=== PATIENT | female | born 1960 | race Caucasian/White ===

== ENCOUNTER → 2016-06-23 | Outpatient (CLI) | payer OTHER ==
[~2016-06-23] MED LIST: ATOR-24 PO; DIPH-437 PO; LINA1CAP2 PO; OMEG10007 PO; ONDA4TAB10 SL; POLY335019 PO; PRLSR20 PO; TRAM-10 PO; WHEATAB2 PO; ZNTT/150 PO
[2016-06-23 17:31] LABS: HEMATOCRIT 42.7 % (37-47); MEAN CELL VOLUME 85.1 fL (80-100); MEAN CORPUSCULAR HEMOGLOBIN 29.1 pg (25-34); MEAN CORPUSCULAR HGB CONC 34.2 g/dl (32-36); MEAN PLATELET VOLUME 13.4 fL (7.4-10.4); PLATELET COUNT 215 K/uL (130-400); RED BLOOD COUNT 5.02 M/uL (4.2-5.4); WHITE BLOOD COUNT 6.49 K/uL (4.8-10.8)
[2016-06-23 17:36] LABS: URINE APPEARANCE CLOUDY (CLEAR); URINE BILIRUBIN NEG (NEG); URINE COLOR YELLOW; URINE EPITHELIAL CELL AUTO >30 /lpf (0-5); URINE NITRITE NEG (NEG); URINE PH 5.5 (4.5-7.5); URINE SPECIFIC GRAVITY 1.021 (1.000-1.030); UROBILINOGEN NEG (NEG); ZZUR CULT IF INDIC CLEAN CATCH YES
[2016-06-23 17:38] LABS: MANUAL MICROSCOPIC REQUIRED? NO; REVIEW REQ? NO
[2016-06-23 17:56] LABS: CHOLESTEROL/HDL RATIO 7.5
== END | disposition home or self-care (01) ==
LOC: C.LABPVFM 11:00
PROVIDERS: ATTEND Internal Medicine Cardiovascular Disease
DX: Z01.818 Encounter for other preprocedural examination (principal); R94.31 Abnormal electrocardiogram [ECG] [EKG]; R07.89 Other chest pain; N81.6 Rectocele

== ENCOUNTER 2016-08-04 11:00 | Emergency (ER) | payer OTHER ==
[~2016-08-04] VITALS: Ht 162.6 cm; Wt 77.9 kg
[~2016-08-04 11:00] MED LIST changes: -ATOR-24 PO; -OMEG10007 PO
[2016-08-04 11:07] VITALS: Ht 162.6 cm; Wt 77.9 kg
[2016-08-04] MEDS ORDERED: OMEG10007 PO (11:48)
[2016-08-04] MEDS ORDERED: ATOR-24 PO (11:49)
--- NOTE | 2016-08-04 13:32 | DIAGNOSTIC IMAGING REPORT ---
RIGHT KNEE 3 VIEWS CLINICAL HISTORY: Right knee pain COMPARISON: None. DISCUSSION: No fractures or dislocations are visualized. There are no erosive or destructive changes. IMPRESSION: Unremarkable conventional radiographic evaluation the right knee for age Electronically signed by: Jareth Daley M.D. 08/04/2016 1:31 PM Dictated Date/Time: 08/04/2016 1:30 PM
--- NOTE | 2016-08-04 15:30 | DIAGNOSTIC IMAGING REPORT ---
RIGHT LOWER EXTREMITY VENOUS DOPPLER CLINICAL HISTORY: Right lower extremity pain and swelling. COMPARISON STUDY: Right lower extremity venous Doppler December 07, 2013. TECHNIQUE: Sonography of the deep venous system of the right lower extremity was performed. Compression and augmentation were evaluated. FINDINGS: The right common femoral, superficial femoral and popliteal veins were compressible. Augmentation was normal. Flow was shown within the deep calf vessels. No abnormality was identified by sonography within the soft tissues overlying the right knee at site of maximal pain and swelling. IMPRESSION: No evidence of deep venous thrombus within the right lower extremity. Electronically signed by: Kadeem Feliciano M.D. 08/04/2016 3:28 PM Dictated Date/Time: 08/04/2016 3:27 PM
--- NOTE | 2016-08-04 15:37 | EMERGENCY ROOM VISIT NOTE ---
ED Visit Note First contact with patient: 12:32 CHIEF COMPLAINT: Pain and swelling in the front of the right knee this morning HISTORY OF PRESENT ILLNESS: Patient is a 55-year-old white female who presents emergency department for evaluation of a painful swollen vein over the anterior right knee that she noticed acutely this morning. Patient is 3 weeks status post rectocele repair. She admits that she has been laying around for the last couple of weeks recovering from surgery. This morning she was feeding her dogs , when she began to feel a sharp, throbbing pain in the front of the right knee. She pulled up her pajama pants and noticed that the vein in the front of her knee was swollen and very prominent. She states that it was very painful and rated her pain an 8/10. She did nothing for her symptoms and came to the emergency department. She denies any injury to the area. No falls. She denies that she has been kneeling recently. She denies any history of problems with the right knee. No prior history of DVT. REVIEW OF SYSTEMS: Review of systems as per HPI. All other systems reviewed were negative. At least 6 systems reviewed. PMH: Electronic medical records are reviewed and summarized as above/below. See Problem List. SOCIAL HISTORY: Patient lives at home. Nonsmoker. PHYSICAL EXAM: Vital Signs: Reviewed Nurse's notes. CONSTITUTIONAL: Patient is a well-appearing 55-year-old white female who is awake and alert and in no acute distress. HEART: Regular rate and rhythm without murmurs, ectopy, gallops, or rubs. LUNGS: Clear to auscultation and breath sounds equal, no wheezes, rales, or rhonchi. NEUROLOGICAL: Alert oriented, coherent. PRERL, EOMs full, gait normal. Examination of the right knee shows slight prepatellar soft tissue swelling, possibly prominent venous structure although no palpable cords. No erythema or induration. No knee joint effusion is palpable. Calves are soft and nontender. No other prominent varicosities are noted. EMERGENCY DEPARTMENT COURSE: X-rays of the right knee were obtained and were unremarkable. Ultrasound of the right lower extremity did not demonstrate any evidence for DVT. A focused ultrasound exam over the anterior aspect of the knee in question did not demonstrate any abnormality. Differential diagnoses entertained included superficial thrombophlebitis, DVT, bursitis, among others. The patient was reassured. She was encouraged to take an anti-inflammatory medicine and apply ice, and she has leftover tramadol that she can use for pain. RIGHT KNEE 3 VIEWS CLINICAL HISTORY: Right knee pain COMPARISON: None. DISCUSSION: No fractures or dislocations are visualized. There are no erosive or destructive changes. IMPRESSION: Unremarkable conventional radiographic evaluation the right knee for age RIGHT LOWER EXTREMITY VENOUS DOPPLER CLINICAL HISTORY: Right lower extremity pain and swelling. COMPARISON STUDY: Right lower extremity venous Doppler December 07, 2013. TECHNIQUE: Sonography of the deep venous system of the right lower extremity was performed. Compression and augmentation were evaluated. FINDINGS: The right common femoral, superficial femoral and popliteal veins were compressible. Augmentation was normal. Flow was shown within the deep calf vessels. No abnormality was identified by sonography within the soft tissues overlying the right knee at site of maximal pain and swelling. IMPRESSION: No evidence of deep venous thrombus within the right lower extremity. Problem List Medical Problems: (1) Dysphasia Status: Resolved (2) Esophageal Reflux Status: Chronic (3) FAM HX-DIABETES MELLITUS Status: Chronic (4) FAM HX-ISCHEM HEART DIS Status: Chronic (5) FAMILY HISTORY OF OTHER CARDIOVASCULAR DISEASES Status: Chronic (6) History of herniorrhaphy Status: Resolved (7) Hyperglycemia Status: Resolved (8) Left elbow contusion Status: Resolved (9) Left shoulder pain Status: Resolved (10) Postoperative pain Status: Resolved (11) PURE HYPERGLYCERIDEMIA Status: Chronic (12) Stomach problems Status: Chronic (13) Vomiting Status: Resolved Surgical Problems: (1) History of rectocele Status: Resolved Current/Historical Medications Scheduled Acetaminophen/Diphenhydramine (Tylenol Pm), 1 TAB PO HS Atorvastatin (Lipitor), 40 MG PO DAILY Fish Oil (Corona-3), 1 CAP PO DAILY Linaclotide (Linzess), 290 MCG PO BID Omeprazole (Prilosec), 20 MG PO DAILY Polyethylene Glycol 3350 (Miralax), 17 GM PO BID Ranitidine (Zantac), 150 MG PO HS Wheat Dextrin (Benefiber), 1 DOSE PO BID Scheduled PRN Tramadol (Ultram), 50 MG PO Q6 PRN for Pain Allergies Coded Allergies: Penicillins (Verified Allergy, Intermediate, RASH, 08/04/16) Acetaminophen (Unverified Allergy, Mild, rash, 08/04/16) Hydrocodone (Unverified Allergy, Mild, rash, 08/04/16) Vital Signs Date Time Temp Pulse Resp B/P Pulse Ox O2 Delivery O2 Flow Rate FiO2 08/04/16 16:01 36.8 77 16 118/68 97 08/04/16 16:01 77 16 118/68 97 Room Air 08/04/16 15:07 77 16 121/70 97 Room Air 08/04/16 11:07 36.8 88 18 134/71 95 Room Air Departure Information Impression Primary Impression: Right anterior knee pain Referrals Luisa James C.R.N.P (PCP) Patient Instructions My [facility] Additional Instructions Ibuprofen(Motrin, Advil) may be used for fever or pain. Use 600mg every six hours as needed. Take with food. Avoid using more than 2400mg in a 24 hour period. Do not use 2400mg per day for more than three consecutive days without physician direction. Prolonged inappropriate use can lead to stomach upset or ulcers. This medication can be taken if you need to drive, work, or perform activities which may be dangerous when taking narcotic pain medication. (AND/OR) Acetaminophen(Tylenol) may be used for fever or pain. Use 1000mg every six hours as needed. Avoid using more than 3000mg in a 24 hour period. This medication can be taken if you need to drive, work, or perform activities which may be dangerous when taking narcotic pain medication. Ice compresses for 20 minutes at a time four times daily for 2-3 days. Rest and elevate your injury. Continue current medications. Return to the ER immediately for any numbness, tingling, severe pain, extreme swelling in the extremity or as needed. Follow-up with your primary care provider or orthopedic surgery for further care and evaluation of. your right knee pain
[2016-08-04 16:01] VITALS: BP 118/68; PULSE 77; TEMP 36.8; O2SAT 97
== END 2016-08-04 16:02 | disposition home or self-care (01) ==
LOC: C.EDB 11:02 → C.EDC 16:02
DX: M25.561 Pain in right knee (principal); Z98.890 Other specified postprocedural states; K21.9 Gastro-esophageal reflux disease without esophagitis; Z83.3 Family history of diabetes mellitus; Z82.49 Family history of ischemic heart disease and other diseases of the circulatory system; Z79.899 Other long term (current) drug therapy; M79.604 Pain in right leg; R60.0 Localized edema

== ENCOUNTER → 2016-12-17 | Outpatient (CLI) | payer OTHER ==
[~2016-12-17] MED LIST changes: +ATOR-24 PO; +OMEG10007 PO; -ONDA4TAB10 SL
--- NOTE | 2016-12-17 15:18 | MAMMOGRAPHY REPORT ---
BILATERAL DIGITAL SCREENING MAMMOGRAM TOMOSYNTHESIS WITH CAD: 12/17/2016 CLINICAL HISTORY: Routine screening. Patient has no complaints. TECHNIQUE: Breast tomosynthesis in addition to standard 2D mammography was performed. Current study was also evaluated with a Computer Aided Detection (CAD) system. COMPARISON: Comparison is made to exams dated: 11/13/2014 mammogram, 03/05/2010 mammogram - [facility], 06/28/2007, 06/30/2006, and 04/01/2005 mammogram - [facility]. BREAST COMPOSITION: The tissue of both breasts is heterogeneously dense, which may obscure small mas ses. FINDINGS: The parenchymal pattern is unchanged. No developing mass, architectural distortion or clus ter of suspicious microcalcifications is seen in either breast. IMPRESSION: ACR BI-RADS CATEGORY 2: BENIGN There is no mammographic evidence of malignancy. A 1 year screening mammogram is recommended. The pa tient will receive written notification of the results. Approximately 10% of breast cancers are not detected with mammography. A negative mammographic report should not delay biopsy if a clinically suggestive mass is present. Rajwinder Gibbs M.D. ay/:12/17/2016 15:07:15 Wire Fence Builder: Sanjana ROMO(Gokul)(Sohail), [facility] letter sent: Normal 1/2 BI-RADS Code: ACR BI-RADS Category 2: Benign
== END | disposition home or self-care (01) ==
LOC: C.MAMM 14:10
PROVIDERS: ATTEND Nurse Practitioner
DX: Z12.31 Encounter for screening mammogram for malignant neoplasm of breast (principal)

== ENCOUNTER → 2016-12-23 | Outpatient (CLI) | payer OTHER ==
[2016-12-23 13:29] LABS: ALT/SGPT 29 U/L (12-78); AST/SGOT 20 U/L (15-37); BLOOD UREA NITROGEN 13 mg/dl (7-18); BUN/CREATININE RATIO 20.8 (10-20); CALCIUM 8.8 mg/dl (8.5-10.1); CARBON DIOXIDE 27 mmol/L (21-32); CHLORIDE 108 mmol/L (98-107); CHOLESTEROL 144 mg/dl (0-200); CREATININE 0.63 mg/dl (0.60-1.20); GLUCOSE 104 mg/dl (70-99); POTASSIUM 3.8 mmol/L (3.5-5.1); SODIUM 142 mmol/L (136-145)
[2016-12-23 13:32] LABS: ALKALINE PHOSPHATASE 121 U/L (45-117); CHOLESTEROL/HDL RATIO 4.1; HDL CHOLESTEROL 35 mg/dl; LDL CHOLESTEROL CALCULATED 57 mg/dl; TRIGLYCERIDES 260 mg/dl (0-150); VERY LOW DENSITY LIPOPROT CALC 52 mg/dl
== END | disposition home or self-care (01) ==
LOC: C.LABPVFM 10:39
PROVIDERS: ATTEND Nurse Practitioner
DX: R73.09 Other abnormal glucose (principal); I95.9 Hypotension, unspecified

== ENCOUNTER → 2017-02-16 | Outpatient (CLI) | payer OTHER ==
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
== END | disposition home or self-care (01) ==
LOC: C.RADPV 11:28
PROVIDERS: ATTEND Nurse Practitioner
DX: S22.42XA Multiple fractures of ribs, left side, initial encounter for closed fracture (principal); V29.9XXA Motorcycle rider (driver) (passenger) injured in unspecified traffic accident, initial encounter; M25.552 Pain in left hip; J98.11 Atelectasis; J90 Pleural effusion, not elsewhere classified

== ENCOUNTER → 2017-02-26 | Outpatient (CLI) | payer OTHER ==
[~2017-02-26] MED LIST changes: +CIPR1TAB11 PO; -DIPH-437 PO; +DOCU100T7 PO; +HYDR-4079 PO; -OMEG10007 PO; +RXCS5 PO; -TRAM-10 PO
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
== END | disposition home or self-care (01) ==
LOC: C.RADPV 12:13
PROVIDERS: ATTEND Nurse Practitioner
DX: M25.512 Pain in left shoulder (principal); S22.42XA Multiple fractures of ribs, left side, initial encounter for closed fracture; V29.9XXA Motorcycle rider (driver) (passenger) injured in unspecified traffic accident, initial encounter

== ENCOUNTER → 2017-04-24 | Outpatient (CLI) | payer OTHER ==
[~2017-04-24] MED LIST changes: -CIPR1TAB11 PO; +DICL-201 PO; +PRMVC VAGRING; -RXCS5 PO
[2017-04-24 18:11] LABS: ALT/SGPT 29 U/L (12-78); AST/SGOT 13 U/L (15-37); BLOOD UREA NITROGEN 23 mg/dl (7-18); BUN/CREATININE RATIO 32.6 (10-20); CALCIUM 9.1 mg/dl (8.5-10.1); CARBON DIOXIDE 25 mmol/L (21-32); CHLORIDE 104 mmol/L (98-107); GLUCOSE 112 mg/dl (70-99); POTASSIUM 3.4 mmol/L (3.5-5.1); SODIUM 136 mmol/L (136-145)
[2017-04-24 18:14] LABS: ALB/GLOB RATIO 0.9 (0.9-2); ALKALINE PHOSPHATASE 124 U/L (45-117)
== END | disposition home or self-care (01) ==
LOC: C.LABPVFM 14:04
PROVIDERS: ATTEND Nurse Practitioner
DX: R74.8 Abnormal levels of other serum enzymes (principal)

== ENCOUNTER → 2017-05-13 | Outpatient (CLI) | payer OTHER ==
[~2017-05-13] MED LIST changes: +RANI150T85 PO; -ZNTT/150 PO
== END | disposition home or self-care (01) ==
LOC: C.CPL 16:10
DX: M25.512 Pain in left shoulder (principal)

== ENCOUNTER → 2017-07-20 | Outpatient (CLI) | payer OTHER ==
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
[2017-07-20 18:32] LABS: ALBUMIN 4.1 gm/dl (3.4-5.0); ALT/SGPT 35 U/L (12-78); AST/SGOT 16 U/L (15-37); BLOOD UREA NITROGEN 20 mg/dl (7-18); CALCIUM 9.7 mg/dl (8.5-10.1); CARBON DIOXIDE 28 mmol/L (21-32); CREATININE 0.66 mg/dl (0.60-1.20); GLUCOSE 100 mg/dl (70-99); POTASSIUM 3.7 mmol/L (3.5-5.1); SODIUM 136 mmol/L (136-145)
[2017-07-20 18:34] LABS: ALKALINE PHOSPHATASE 128 U/L (45-117); TOTAL PROTEIN 8.4 gm/dl (6.4-8.2)
== END | disposition home or self-care (01) ==
LOC: C.RADPV 15:56
PROVIDERS: ATTEND Nurse Practitioner
DX: S22.32XD Fracture of one rib, left side, subsequent encounter for fracture with routine healing (principal); X58.XXXD Exposure to other specified factors, subsequent encounter; J98.11 Atelectasis; R74.8 Abnormal levels of other serum enzymes

== ENCOUNTER → 2017-08-10 | Outpatient (CLI) | payer OTHER ==
[2017-08-10 17:40] LABS: BASO % 0.5 %; BASO ABS # 0.03 K/uL (0-0.2); EOS % 1.8 %; HEMATOCRIT 39.6 % (37-47); HEMOGLOBIN 13.1 g/dL (12.0-16.0); IG# 0.01 K/uL (0.00-0.02); LYMPH % 44.5 %; LYMPH ABS # 2.47 K/uL (1.2-3.4); MEAN CELL VOLUME 86.5 fL (80-100); MEAN CORPUSCULAR HEMOGLOBIN 28.6 pg (25-34); MEAN CORPUSCULAR HGB CONC 33.1 g/dl (32-36); MEAN PLATELET VOLUME 12.5 fL (7.4-10.4); MONO % 7.2 %; NEUT % 45.8 %; NEUT ABS # 2.54 K/uL (1.4-6.5); PLATELET COUNT 204 K/uL (130-400); RED CELL DISTRIBUTION WIDTH CV 13.2 % (11.5-14.5); RED CELL DISTRIBUTION WIDTH SD 42.1 fL (36.4-46.3); WHITE BLOOD COUNT 5.55 K/uL (4.8-10.8)
== END | disposition home or self-care (01) ==
LOC: C.LABPVFM 15:42
PROVIDERS: ATTEND Nurse Practitioner
DX: S22.32XA Fracture of one rib, left side, initial encounter for closed fracture (principal); R53.83 Other fatigue; X58.XXXA Exposure to other specified factors, initial encounter

== ENCOUNTER → 2017-08-27 | Outpatient (CLI) | payer OTHER | END | disposition home or self-care (01) | LOC: C.PAPS 08:30 | PROVIDERS: ATTEND Obstetrics & Gynecology | DX: Z12.4 Encounter for screening for malignant neoplasm of cervix (principal) ==

== ENCOUNTER 2019-04-13 16:48 | Inpatient (IN) ==
[2019-04-13] MEDS ORDERED: SODIUM CHLORIDE 0.9% 1000ML 1,000 ML IV ONE (17:57)
[2019-04-13 18:28] LABS: Basophils # (auto) 0.03 K/uL (0-0.2); Basophils % (auto) 0.2 %; Hematocrit (blood only) 41.1 % (37-47); Immature Granulocytes # (auto) 0.03 K/uL (0.00-0.02); Immature Granulocytes % (auto) 0.2 %; Lymphocytes # (auto) 2.08 K/uL (1.2-3.4); Lymphocytes % (auto) 17.1 %; Mean Corpuscular Hemoglobin 28.7 pg (25-34); Mean Corpuscular Hgb Conc 34.1 g/dL (32-36); Mean Corpuscular Volume 84.4 fL (80-100); Mean Platelet Volume 10.6 fL (7.4-10.4); Monocytes # (auto) 0.84 K/uL (0.11-0.59); Monocytes % (auto) 6.9 %; Neutrophils # (auto) 9.17 K/uL (1.4-6.5); Neutrophils % (auto) 75.6 %; Platelet Count 222 K/uL (130-400); RDW Coefficient of Variation 13.4 % (11.5-14.5); RDW Standard Deviation 40.3 fL (36.4-46.3); Red Blood Count 4.87 M/uL (4.2-5.4); White Blood Count 12.15 K/uL (4.8-10.8)
--- NOTE | 2019-04-13 18:28 | Emergency Department Note ---
Entered by Swati Pearson acting as a scribe for History of Present Illness General Chief complaint: GI Assessment Stated complaint: PAIN,NO BOWEL MOVEMENT,VOMITING,ANXIETY ATTACK Time Seen by Provider: 04/13/19 17:48 History of Present Illness Provider complaint: GI bleeding Onset (ago): hour(s) 8 Pain Consistency: + other (episode) Maximum Pain Intensity: 9 Quality: + other (GI bleeding) Relieved By: not by medication (laxatives) Associated symptoms: + diaphoresis, + nausea/vomiting and + other (history of rectocele surgery, constipated for 2 weeks, chills, anxiety attack, abdomen feels hard, elevated pulse rate and blood pressure, massaging back sometimes helps her move bowels) The patient is a 58 year old female who presents to the ED with complaints of an episode of GI bleeding that started 8 hours ago. The patient states that she had rectocele surgery 2 years ago and has felt fine until now because she has been constipated for the past 2 weeks. The patient states that she was seen in the ED yesterday for this reason but nothing was done to help her. The patient notes that she saw her PCP today and was referred back to the ED because of her bleeding as well as her elevated pulse and blood pressure. The patient states that she got out of the shower yesterday afternoon and was diaphoretic, vomiting and had chills. The patient notes that shortly after these symptoms started, she had an anxiety attack. The patient states that when she was seen here yesterday, she was given Ativan which made her sleepy and forgetful. The patient states that she now has blood coming out of her rectum every time she attempts to move her bowels. The patient states that her last bowel movement was 2 weeks ago. The patient states that she has been using laxatives intermittently ever since her surgery, but they are not helping her now. The patient notes that her abdomen feel hard. The patient states that she had back surgery in 2003 and she believes her constipation is sometimes because of her tight back muscles. The patient notes that massaging her back can occasionally help her move her bowels. Home Medications Home Medications Medication Instructions Recorded Confirmed Type aspirin 81 mg PO DAILY 06/03/18 04/13/19 History atorvastatin 40 mg PO PM 06/03/18 04/13/19 History docusate sodium 100 mg PO HS PRN 06/03/18 04/13/19 History gabapentin 300 mg PO TID PRN 06/03/18 04/13/19 History linaclotide [Linzess] 290 mcg PO DAILY PRN 06/03/18 04/13/19 History omeprazole 20 mg PO DAILY PRN 06/03/18 04/13/19 History polyethylene glycol 3350 [Miralax] 17 g PO DAILY PRN 06/03/18 04/13/19 History conjugated estrogens 0.625 mg VAGINAL 2XWK 04/12/19 04/13/19 History ondansetron HCl [Zofran] 4 mg PO DAILY PRN #6 tab 04/12/19 04/13/19 Rx Allergies Allergy/AdvReac Type Severity Reaction Status Date / Time Penicillins Allergy Intermediate RASH Verified 04/13/19 15:42 hydrocodone Allergy Mild rash Verified 04/13/19 15:42 Past Med/Surg History Medical History Acute hyperventilation (Acute) Acute hypokalemia (Acute) Constipation (Chronic) Gastroenteritis (Acute) GI bleed (Acute) Left elbow contusion (Resolved) Left shoulder pain (Resolved) No chronic diseases present Surgical History No significant past surgical history Family History Other No significant family history Social History Preferred Language: Sudanese Communication Ability: Effective Beliefs That Will Affect Care: None marital status: Single Current Living Situation: Family Current Living Situation Comment: son and son's s/o current occupational status: unemployed Feels Safe at Home: Yes Smoking Status: Never smoker Hx Alcohol Use: No Hx Substance Use: No Review of Systems See HPI for pertinent positives & negatives. and A total of 10 systems reviewed and were otherwise negative Physical Exam Vital Signs Vital Signs - 24 hr 04/13/19 17:04 04/13/19 18:24 04/13/19 19:27 Temperature 37.1 C Temperature Source Oral Pulse Rate 104 H Pulse Rate [Apical] 98 H Pulse Rhythm Regular Pulse Strength Normal Respiratory Rate 16 18 Respiratory Effort / Characteristics Non-Labored Respiratory Depth Normal Respiratory Pattern Regular Blood Pressure 135/91 Blood Pressure [Right Arm] 134/71 Blood Pressure Mean 105 Blood Pressure Mean [Right Arm] 92 Blood Pressure Position Sitting Pulse Oximetry 99 98 97 Oxygen Delivery Method Room Air Room Air Room Air Sepsis Recent Fever Within 48 Hours No Sepsis Action Taken by Nursing No Action Required General: Non-ill appearing middle-aged female, in no acute distress. HEENT: Normal cephalic atraumatic. Pupils are equal round and reactive to light. Extraocular movements are intact. Oropharynx is pink with moist mucous membranes. No swelling of the mouth lips or tongue. Neck: Supple with a midline trachea. No meningeal signs or stiffness, no JVD or bruits. No Stridor. Chest: Clear to auscultation bilaterally. No wheezes or rhonchi. No increased work of breathing. Heart: regular rate and rhythm. Abdomen: Soft nontender, nondistended without rebound guarding or rigidity. Rectal: Rectal exam performed in presence of female eyelet maker. No hemorrhoid or tear seen. Scant pinkish stool visualized which was guaiac positive. Possible nodule mass felt above rectum. Extremities: No cyanosis clubbing or edema. No calf tenderness or asymmetry Spine/Back. Non tender to palpation. No CVA tenderness Skin: Good turgor without rashes. Neurologic exam: Cranial nerves two through 12 are intact. Motor and sensation are intact and symmetrical throughout. Course Course 1749: Past medical records reviewed. The patient was evaluated in room C7. A complete history and physical exam was performed. 1920: I performed a rectal exam at this time in the presence of a female eyelet maker. Findings noted in physical exam. 1941: I discussed the patients case with Dr. Brock [facility] Hospitalist. He will evaluate the patient for further management. Consultations Consultation #1: I discussed the patients case with Dr. Brock [facility] Hospitalist. He will evaluate the patient for further management. Time: 19:42 Administered Medications Atorvastatin Calcium (Lipitor) 40 mg PO PM SOPHY Stop: 05/13/19 20:59 Last Admin: 04/14/19 20:51 Dose: 40 mg Documented by: [id number] Admin: 04/13/19 21:51 Dose: 40 mg Documented by: [id number] Calcium Carbonate (Tums) 1,500 mg PO Q4H PRN PRN Reason: Indigestion Stop: 05/13/19 22:49 Last Admin: 04/14/19 03:19 Dose: 1,500 mg Documented by: [id number] Promethazine HCl 25 mg/ Sodium (Chloride) 51 mls @ 204 mls/hr IV Q6H PRN PRN Reason: Nausea And Vomiting Stop: 05/14/19 00:02 Last Infusion: 04/14/19 19:05 Dose: 0 mls/hr Documented by: [id number] Admin: 04/14/19 18:48 Dose: 204 mls/hr Documented by: [id number] Infusion: 04/14/19 08:20 Dose: 0 mls/hr Documented by: [id number] Admin: 04/14/19 08:00 Dose: 204 mls/hr Documented by: [id number] Infusion: 04/14/19 00:57 Dose: 0 mls/hr Documented by: [id number] Admin: 04/14/19 00:33 Dose: 204 mls/hr Documented by: [id number] Pantoprazole Sodium 40 mg/ (Dextrose) 100 mls @ 20 mls/hr IV Q5H SOPHY Stop: 05/14/19 00:29 Last Admin: 04/15/19 06:27 Dose: 20 mls/hr Documented by: [id number] Infusion: 04/15/19 06:16 Dose: 20 mls/hr Documented by: [id number] Admin: 04/15/19 01:16 Dose: 20 mls/hr Documented by: [id number] Infusion: 04/15/19 01:00 Dose: 20 mls/hr Documented by: [id number] Admin: 04/14/19 20:00 Dose: 20 mls/hr Documented by: [id number] Infusion: 04/14/19 20:00 Dose: 20 mls/hr Documented by: [id number] Admin: 04/14/19 15:36 Dose: 20 mls/hr Documented by: [id number] Infusion: 04/14/19 15:36 Dose: 20 mls/hr Documented by: [id number] Admin: 04/14/19 10:40 Dose: 20 mls/hr Documented by: [id number] Infusion: 04/14/19 10:40 Dose: 20 mls/hr Documented by: [id number] Admin: 04/14/19 06:12 Dose: 20 mls/hr Documented by: [id number] Infusion: 04/14/19 05:46 Dose: 20 mls/hr Documented by: [id number] Admin: 04/14/19 00:46 Dose: 20 mls/hr Documented by: [id number] Lactated Ringer's (Lr) 1,000 mls @ 75 mls/hr IV .[id number] [facility] Stop: 05/14/19 11:29 Last Admin: 04/14/19 22:31 Dose: 75 mls/hr Documented by: [id number] Infusion: 04/14/19 22:31 Dose: 75 mls/hr Documented by: [id number] Infusion: 04/14/19 17:21 Dose: 75 mls/hr Documented by: [id number] Admin: 04/14/19 12:40 Dose: 125 mls/hr Documented by: [id number] Ondansetron HCl (Zofran) 4 mg IV Q6H PRN PRN Reason: Nausea Stop: 05/13/19 21:28 Last Admin: 04/14/19 17:21 Dose: 4 mg Documented by: [id number] Admin: 04/13/19 23:04 Dose: 4 mg Documented by: [id number] Polyethylene Glycol (Miralax Powder Packet) 17 gm PO DAILY [facility] Stop: 05/14/19 08:59 Last Admin: 04/14/19 10:40 Dose: Not Given Documented by: [id number] Discontinued Medications Sodium Chloride (Nss 1000ml) 1,000 mls @ 999 mls/hr IV .Q1H1M ONE Stop: 04/13/19 18:57 Last Infusion: 04/13/19 19:41 Dose: 0 mls/hr Documented by: [id number] Admin: 04/13/19 18:24 Dose: 999 mls/hr Documented by: [id number] Sodium Chloride (Nss 1000ml) 1,000 mls @ 125 mls/hr IV .Q8H [facility] Stop: 05/13/19 21:28 Last Infusion: 04/14/19 15:09 Dose: 0 mls/hr Documented by: [id number] Infusion: 04/14/19 12:29 Dose: 0 mls/hr Documented by: [id number] Admin: 04/14/19 07:29 Dose: 125 mls/hr Documented by: [id number] Infusion: 04/14/19 07:29 Dose: 0 mls/hr Documented by: [id number] Infusion: 04/14/19 04:58 Dose: 125 mls/hr Documented by: [id number] Infusion: 04/14/19 04:37 Dose: 0 mls/hr Documented by: [id number] Infusion: 04/14/19 00:57 Dose: 125 mls/hr Documented by: [id number] Infusion: 04/14/19 00:35 Dose: 0 mls/hr Documented by: [id number] Infusion: 04/14/19 00:04 Dose: 125 mls/hr Documented by: [id number] Infusion: 04/13/19 23:45 Dose: 0 mls/hr Documented by: [id number] Admin: 04/13/19 21:50 Dose: 125 mls/hr Documented by: [id number] Potassium Chloride (K Marcel / Wtr) 10 meq in 100 mls @ 100 mls/hr IV Q1H SOPHY Stop: 04/14/19 01:59 Last Infusion: 04/14/19 03:46 Dose: 0 mls/hr Documented by: [id number] Admin: 04/14/19 02:24 Dose: 100 mls/hr Documented by: [id number] Infusion: 04/14/19 02:20 Dose: 100 mls/hr Documented by: [id number] Admin: 04/14/19 01:20 Dose: 100 mls/hr Documented by: [id number] Infusion: 04/14/19 00:35 Dose: 0 mls/hr Documented by: [id number] Infusion: 04/14/19 00:04 Dose: 75 mls/hr Documented by: [id number] Infusion: 04/13/19 23:45 Dose: 0 mls/hr Documented by: [id number] Admin: 04/13/19 22:55 Dose: 100 mls/hr Documented by: [id number] Infusion: 04/13/19 22:50 Dose: 100 mls/hr Documented by: [id number] Admin: 04/13/19 21:50 Dose: 100 mls/hr Documented by: [id number] Pantoprazole Sodium 80 mg/ (Dextrose) 120 mls @ 480 mls/hr IV NOW STA Stop: 04/14/19 00:21 Last Infusion: 04/14/19 00:47 Dose: 0 mls/hr Documented by: [id number] Admin: 04/14/19 00:32 Dose: 480 mls/hr Documented by: [id number] Ondansetron HCl 8 mg/ Dextrose 54 mls @ 200 mls/hr IV NOW STA Stop: 04/14/19 04:36 Last Infusion: 04/14/19 04:58 Dose: 0 mls/hr Documented by: [id number] Admin: 04/14/19 04:37 Dose: 200 mls/hr Documented by: [id number] Erythromycin Lactobionate 250 (mg/ Sodium Chloride) 105 mls @ 210 mls/hr IV ONE ONE Stop: 04/14/19 12:29 Last Infusion: 04/14/19 15:09 Dose: 0 mls/hr Documented by: [id number] Admin: 04/14/19 12:45 Dose: 210 mls/hr Documented by: [id number] Lidocaine HCl (Xylocaine 2%) Confirm Administered Dose 4 ml INFIL .STK-MED ONE Stop: 04/14/19 10:53 Last Admin: 04/14/19 20:04 Dose: Not Given Documented by: [id number] Potassium Chloride (Klor-Con M20) 40 meq PO NOW STA Stop: 04/13/19 21:30 Last Admin: 04/13/19 21:51 Dose: 40 meq Documented by: [id number] Propofol (Diprivan) Confirm Administered Dose 200 mg IV .STK-MED ONE Stop: 04/14/19 10:53 Last Admin: 04/14/19 20:04 Dose: Not Given Documented by: [id number] Medical Decision Making Differential Diagnosis Differentials include GI bleed, hemorrhoid, constipation, bowel obstruction, colitis, metabolic and electrolyte abnormality. Medical Records Attestation: I reviewed the patient's medical records. Home Medications Current Medication List: was personally reviewed by me Laboratory Data Attestation: I reviewed the patient's lab results. Result diagrams: 04/15/19 08:10 04/15/19 08:10 Lab Results 04/13/19 04/13/19 04/13/19 Range/Units 18:16 18:16 18:16 WBC 12.15 H (4.8-10.8) K/uL RBC 4.87 (4.2-5.4) M/uL Hgb 14.0 (12.0-16.0) g/dL Hct 41.1 (37-47) % MCV 84.4 (80-100) fL MCH 28.7 (25-34) pg MCHC 34.1 (32-36) g/dL RDW Std Deviation 40.3 (36.4-46.3) fL RDW Coeff of Dwaine 13.4 (11.5-14.5) % Plt Count 222 (130-400) K/uL MPV 10.6 H (7.4-10.4) fL Immature Gran % (Auto) 0.2 % Neut % (Auto) 75.6 % Lymph % (Auto) 17.1 % [place] % (Auto) 6.9 % Eos % (Auto) 0.0 % Baso % (Auto) 0.2 % Immature Gran # (Auto) 0.03 H (0.00-0.02) K/uL Neut # (Auto) 9.17 H (1.4-6.5) K/uL Lymph # (Auto) 2.08 (1.2-3.4) K/uL [place] # (Auto) 0.84 H (0.11-0.59) K/uL Eos # (Auto) 0.00 (0-0.5) K/uL Baso # (Auto) 0.03 (0-0.2) K/uL Sodium 136 (136-145) mmol/L Potassium 3.0 L (3.5-5.1) mmol/L Chloride 102 (98-107) mmol/L Carbon Dioxide 26 (21-32) mmol/L Anion Gap 8.0 (3-11) BUN 19 H (7-18) mg/dl Creatinine 0.79 (0.6-1.2) mg/dl Est Cr Clr Drug Dosing 67.0 ml/min Est GFR ( Amer) 95.6 Est GFR (Non-Af Amer) 82.5 BUN/Creatinine Ratio 23.6 H (10-20) Glucose 107 H (70-99) mg/dl Calcium 9.9 (8.5-10.1) mg/dl Total Bilirubin 1.0 (0.2-1) mg/dl AST 16 (15-37) U/L ALT 32 (12-78) U/L Alkaline Phosphatase 101 (45-117) U/L Total Protein 8.5 H (6.4-8.2) gm/dl Albumin 4.3 (3.4-5.0) gm/dl Globulin 4.2 H (2.5-4.0) gm/dl Albumin/Globulin Ratio 1.0 (0.9-2) Lipase 617 H (73-393) U/L Blood Type O Positive Antibody Screen NEGATIVE Blood Pressure Blood Pressure Findings: Elevated blood pressure Blood Pressure Disposition: further management by hospitalist MDM Narrative This patient comes in as described above. She was seen last evening and had extensive work-up including CAT scan of the abdomen and blood work. She did h ave an elevated white count and her abdomen had nonspecific colitis. She has been passing blood per rectum she has a history of rectocele surgery. she saw her primary care doctor who sent her here and they were concerned about her bleeding. I did a rectal exam and I do not see any obvious hemorrhoid or fissure or any source of bleeding. There is scant stool, it was pinkish mucus that was guaiac positive. Her hemoglobin is stable. Her white count is trending down from yesterday. Her abdomen is without peritonitis. Given her ongoing symptoms and the concern for GI bleed, I do think it is prudent to admit/observe her for further inpatient treatment and evaluation GI work-up. I have consulted the [facility] hospitalist to see her in the ER for these measures. Impression & Plan GI bleed, Constipation, Diffuse abdominal pain, Vomiting Discharge Plan Visit Data *Final* Discharge Date/Time: 04/13/19 21:21 Chief Complaint: GI Assessment Stated Complaint: PAIN,NO BOWEL MOVEMENT,VOMITING,ANXIETY ATTACK ED Provider: Clemente Eli Discharge Problem: GI bleed, Constipation, Diffuse abdominal pain, Vomiting Patient Disposition: Admitted As Inpatient Discharge Instructions Interventions: ED Discharge Assessment Last Done: 04/13/19 21:21 Discharge Problem: GI bleed Qualifiers: GI bleed type/associated pathology: unspecified gastrointestinal hemorrhage type Qualified Code(s): K92.2 - Gastrointestinal hemorrhage, unspecified Constipation Qualifiers: Constipation type: unspecified constipation type Qualified Code(s): K59.00 - Constipation, unspecified Vomiting Qualifiers: Vomiting type: unspecified Vomiting Intractability: non-intractable Nausea presence: with nausea Qualified Code(s): R11.2 - Nausea with vomiting, unspecified The scribe's documentation has been prepared under my direction and personally reviewed by me in its entirety. I confirm that the note above accurately reflects all work, treatment, procedures, and medical decision making performed by me.
[2019-04-13 18:49] LABS: Albumin Level 4.3 gm/dl (3.4-5.0); BUN Creatinine Ratio 23.6 (10-20); Calcium 9.9 mg/dl (8.5-10.1); Est GFR (African American) 95.6; Est GFR (Non-African American) 82.5
[2019-04-13 18:52] LABS: Globulin 4.2 gm/dl (2.5-4.0); Total Protein 8.5 gm/dl (6.4-8.2)
[2019-04-13] MEDS ORDERED: POLYETHYLENE (MIRALAX) 17 GM PACK PO PRN (20:21)
[2019-04-13] MEDS ORDERED: GABAPENTIN 300 MG CAP PO PRN (20:21)
--- NOTE | 2019-04-13 20:56 | History & Physical Report ---
Date of Service April 13, 2019 Assessment & Plan (1) GI bleed: Patient is a 58-year-old female past medical history HLD, constipation, who presents with acute on chronic constipation and new onset of bright red blood [facility]. GI Bleed -Hemodynamically stable -HH on admission: . -Will repeat HH overnight and in AM -Consult [facility] GI per pt request -IVF -NPO from midnight -Holding ASA Constipation -Scheduled miralax, dulcolax -Uptitrate outpatient mgmt Abdominal pain -will try to control with bowel regimen and tylenol -Consider morphine prn, however pt reports hydrocodone allergy Hypokalemia -replete prn; monitor HLD -Cont statin Dispo: admit to med/surg Code: full DVTP: SCDs; no chemical ppx in setting of GI bleed (2) Constipation: (3) Diffuse abdominal pain: (4) Acute hypokalemia: (5) Hyperlipidemia: History of Present Illness Chief Complaint: GI bleed, constipation Primary Care Provider: Jennifer Ann MD Patient is a 58-year-old female past medical history HLD, constipation, who presents with acute on chronic constipation and new onset of bright red blood [facility]. Patient was seen yesterday evening in the ER, and had an extensive work-up including a CT scan as well as blood work. CT scan from last evening showed evidence of bowel wall thickening, diverticulosis, absence of diverticulitis, without abdominal obstruction. She was noted to have an elevated white blood cell count of 19,000, and was hypokalemic. C. difficile testing was negative last evening. Norovirus testing is still pending. She saw her PCP today for follow-up, and it was noted at that time that she had an elevated heart rate of 130. She also noted that she has vomited twice while trying to pass bowel movement today, and it was felt by her PCP that she should be evaluated further in the ER today. Of note, patient has a history of rectocele surgery which was performed 2 years ago at [facility] in [place]. Patient notes she takes four stool softeners daily, including 1 capful of MiraLAX, a spoonful of Benefiber as needed, Linzess and as needed, and Dulcolax as needed. She last took Linzess yesterday and notes that today she had mushy, bloody, maroon- colored stool. In general, she notes a maximum of 1 bowel movement every other day. She also notes that it is gone to the point now where she has to "reach in and pull out nuggets." She is complaining of 6 out of 10 pain in the lower left and lower right quadrants on my assessment today. Allergies Allergy/AdvReac Type Severity Reaction Status Date / Time Penicillins Allergy Intermediate RASH Verified 04/13/19 15:42 hydrocodone Allergy Mild rash Verified 04/13/19 15:42 Home Medications Home Medications Medication Instructions Recorded Confirmed Type aspirin 81 mg PO DAILY 06/03/18 04/13/19 History atorvastatin 40 mg PO PM 06/03/18 04/13/19 History docusate sodium 100 mg PO HS PRN 06/03/18 04/13/19 History gabapentin 300 mg PO TID PRN 06/03/18 04/13/19 History linaclotide [Linzess] 290 mcg PO DAILY PRN 06/03/18 04/13/19 History omeprazole 20 mg PO DAILY PRN 06/03/18 04/13/19 History polyethylene glycol 3350 [Miralax] 17 g PO DAILY PRN 06/03/18 04/13/19 History conjugated estrogens 0.625 mg VAGINAL 2XWK 04/12/19 04/13/19 History ondansetron HCl [Zofran] 4 mg PO DAILY PRN #6 tab 04/12/19 04/13/19 Rx Past Med/Surg History Medical History Acute hyperventilation (Acute) Acute hypokalemia (Acute) Constipation (Chronic) Gastroenteritis (Acute) GI bleed (Acute) Left elbow contusion (Resolved) Left shoulder pain (Resolved) No chronic diseases present Surgical History No significant past surgical history Family History Other No significant family history Social History Preferred Language: Croatian Communication Ability: Effective Beliefs That Will Affect Care: None marital status: Single Current Living Situation: Family Current Living Situation Comment: son and son's s/o current occupational status: unemployed Feels Safe at Home: Yes Smoking Status: Never smoker Hx Alcohol Use: No Hx Substance Use: No Review of Systems Review of Systems: All systems reviewed & are unremarkable except as noted in HPI & below Constitutional: + malaise Respiratory: no cough and no dyspnea Cardiovascular: no chest pain Gastrointestinal: + abdominal pain and + vomiting (when straining for BMs); no nausea Genitourinary: no dysuria, no urinary frequency, no urinary hesitancy and no urinary urgency Physical Exam Physical Exam: General: Well-appearing female, in no significant distress. HEENT: No scleral icterus, PERRLA, neck supple. Atraumatic. Cardiovascular: Regular rate and rhythm, no extra sounds. Pulmonary: Clear to auscultation bilaterally, normal work of breathing. Abdomen: Soft, tender in epigastrium, LLQ, RLQ, nondistended, positive bowel sounds. Musculoskeletal: Atraumatic, no peripheral edema. Neurologic: Patient awake alert and oriented x 3, full strength in all 4 extremities. Cranial nerves 2 through 12 grossly intact. Skin: Warm, dry, no rash Results & Data Vital Signs (Past 12 Hours) Vital Signs Temp Pulse Pulse Resp BP BP Pulse Ox 04/13/19 19:27 98 H 18 134/71 97 04/13/19 18:24 98 04/13/19 17:04 98.8 F 104 H 16 135/91 99 Laboratory Results 04/13/19 04/13/19 04/13/19 Range/Units 18:16 18:16 18:16 WBC 12.15 H (4.8-10.8) K/uL RBC 4.87 (4.2-5.4) M/uL Hgb 14.0 (12.0-16.0) g/dL Hct 41.1 (37-47) % MCV 84.4 (80-100) fL MCH 28.7 (25-34) pg MCHC 34.1 (32-36) g/dL RDW Std Deviation 40.3 (36.4-46.3) fL RDW Coeff of Dwaine 13.4 (11.5-14.5) % Plt Count 222 (130-400) K/uL MPV 10.6 H (7.4-10.4) fL Immature Gran % (Auto) 0.2 % Neut % (Auto) 75.6 % Lymph % (Auto) 17.1 % [place] % (Auto) 6.9 % Eos % (Auto) 0.0 % Baso % (Auto) 0.2 % Immature Gran # (Auto) 0.03 H (0.00-0.02) K/uL Neut # (Auto) 9.17 H (1.4-6.5) K/uL Lymph # (Auto) 2.08 (1.2-3.4) K/uL [place] # (Auto) 0.84 H (0.11-0.59) K/uL Eos # (Auto) 0.00 (0-0.5) K/uL Baso # (Auto) 0.03 (0-0.2) K/uL Sodium 136 (136-145) mmol/L Potassium 3.0 L (3.5-5.1) mmol/L Chloride 102 (98-107) mmol/L Carbon Dioxide 26 (21-32) mmol/L Anion Gap 8.0 (3-11) BUN 19 H (7-18) mg/dl Creatinine 0.79 (0.6-1.2) mg/dl Est Cr Clr Drug Dosing 67.0 ml/min Est GFR ( Amer) 95.6 Est GFR (Non-Af Amer) 82.5 BUN/Creatinine Ratio 23.6 H (10-20) Glucose 107 H (70-99) mg/dl Calcium 9.9 (8.5-10.1) mg/dl Total Bilirubin 1.0 (0.2-1) mg/dl AST 16 (15-37) U/L ALT 32 (12-78) U/L Alkaline Phosphatase 101 (45-117) U/L Total Protein 8.5 H (6.4-8.2) gm/dl Albumin 4.3 (3.4-5.0) gm/dl Globulin 4.2 H (2.5-4.0) gm/dl Albumin/Globulin Ratio 1.0 (0.9-2) Lipase 617 H (73-393) U/L Blood Type O Positive Antibody Screen NEGATIVE Code Status & VTE Plan Code Status full VTE Prophylaxis Plan VTE Prophylaxis will be ordered: Yes Supervising Physician Co-Signing Physician Notes Patient was seen and examined by me personally. I reviewed the chart, the orders and discussed the case in detail with Dr. Ester Ruiz MD. I read this H&P and agree with its contents to entirety. Resident Activity Tracking Resident Involvement: Resident Care Provided Care Provided: Adult Hospital Medicine (1) GI bleed GI bleed type/associated pathology: unspecified gastrointestinal hemorrhage type Qualified Code(s): K92.2 - Gastrointestinal hemorrhage, unspecified (2) Constipation Constipation type: unspecified constipation type Qualified Code(s): K59.00 - Constipation, unspecified
[2019-04-13] MEDS ORDERED: DOCUSATE SODIUM 100 MG CAP PO PRN (21:26)
[2019-04-13] MEDS ORDERED: ALUMINUM/MAGNESIUM SUSP 30 ML UDC PO PRN (21:29)
[2019-04-13] MEDS ORDERED: MAGNESIUM HYDROXIDE SUSP 30 ML UDC PO PRN (21:29)
[2019-04-13] MEDS ORDERED: POTASSIUM CHLORIDE 20 MEQ TABCR PO STA (21:29)
[2019-04-13] MEDS ORDERED: ACETAMINOPHEN 325 MG TAB PO PRN (21:29)
[2019-04-13] MEDS: SODIUM CHLORIDE 0.9% 1000ML 1,000 ML IV SCH (21:50)
[2019-04-13] MEDS: POTASSIUM CHLORIDE / WTR 10 MEQ/100 ML PLCT IV SCH ×2 (21:50→22:55)
[2019-04-13] MEDS: ATORVASTATIN 40 MG TAB PO SCH (21:51)
[2019-04-13] MEDS ORDERED: CALCIUM CARBONATE 500 MG CHEWABLE TAB PO PRN (22:50)
[2019-04-13] MEDS: ONDANSETRON INJ 2 MG/ML 2 ML VIAL IV PRN (23:04)
[2019-04-14] MEDS ORDERED: PANTOprazole 80 MG in DEXTROSE 5% 100 ML IV STA (00:07)
[2019-04-14 00:31] LABS: Hematocrit (blood only) 38.3 % (37-47); Hemoglobin 13.3 g/dL (12.0-16.0)
[2019-04-14] MEDS: PROMETHAZINE HCL 25 MG in SODIUM CHLORIDE 0.9% 50 ML IV PRN ×3 (00:33→18:48)
[2019-04-14] MEDS: PANTOprazole 40 MG in DEXTROSE 5% 100 ML IV SCH ×5 (00:46→20:00)
[2019-04-14] MEDS: POTASSIUM CHLORIDE / WTR 10 MEQ/100 ML PLCT IV SCH ×2 (01:20→02:24)
[2019-04-14 01:47] LABS: Appearance Urine Clear (Clear); Bacteria Urine Automated 1+ (Negative); Bilirubin Urine Negative (Negative); Blood Urine 3+ (Negative); Color Urine Yellow; Epithelial Cell Urine Auto >30 /lpf (0-5); Glucose Urine UA Negative (Negative); Ketones Urine 1+ (Negative); Leukocyte Esterase Urine Negative (Negative); Nitrite Urine Negative (Negative); Urobilinogen Urine Negative (Negative); pH Urine 7.5 (4.5-7.5)
[2019-04-14 02:01] LABS: Protein Urine Negative (Negative); Sulfosalicylic Acid Urine Negative (Negative)
--- NOTE | 2019-04-14 03:41 | History & Physical Bridge Note ---
Date of Service April 14, 2019 History & Physical Bridge Note Notified patient experiencing dark emesis, new for patient. Started on protonix drip at symptom onset; Phenergan added for anti-nausea relief. Symptoms persisted; recommended NGT insertion. H&H stable. NGT attempt unsuccessful as patient did not tolerate, patient declines further attempts. 8mg zofran dose given at 0420. Resident Activity Tracking Resident Involvement: Resident Care Provided and Electronic Sales And Service Technician Coverage Note Care Provided: Adult Hospital Medicine
[2019-04-14] MEDS ORDERED: ondansetron HCL 8 MG in DEXTROSE 5% 50 ML IV STA (04:20)
--- NOTE | 2019-04-14 04:27 | Billing Data ---
Coding Level of Care Code 97568 OBS Care - Level 2
[2019-04-14 05:51] LABS: Basophils # (auto) 0.01 K/uL (0-0.2); Basophils % (auto) 0.1 %; Hemoglobin 12.9 g/dL (12.0-16.0); Immature Granulocytes # (auto) 0.02 K/uL (0.00-0.02); Immature Granulocytes % (auto) 0.2 %; Lymphocytes # (auto) 1.17 K/uL (1.2-3.4); Lymphocytes % (auto) 13.1 %; Mean Corpuscular Hgb Conc 33.9 g/dL (32-36); Mean Corpuscular Volume 85.4 fL (80-100); Mean Platelet Volume 11.1 fL (7.4-10.4); Monocytes # (auto) 0.36 K/uL (0.11-0.59); Neutrophils # (auto) 7.35 K/uL (1.4-6.5); Neutrophils % (auto) 82.6 %; Platelet Count 189 K/uL (130-400); RDW Coefficient of Variation 13.2 % (11.5-14.5); RDW Standard Deviation 41.2 fL (36.4-46.3); Red Blood Count 4.45 M/uL (4.2-5.4); White Blood Count 8.91 K/uL (4.8-10.8)
[2019-04-14 06:35] LABS: Albumin Level 3.6 gm/dl (3.4-5.0); BUN Creatinine Ratio 21.4 (10-20); Bilirubin,Total 1.1 mg/dl (0.2-1); Calcium 8.5 mg/dl (8.5-10.1); Creatinine Clr Calc Pharmacy 84.1 ml/min; Est GFR (African American) 114.6; Est GFR (Non-African American) 98.9; Globulin 3.7 gm/dl (2.5-4.0); Potassium 3.9 mmol/L (3.5-5.1); Total Protein 7.3 gm/dl (6.4-8.2)
[2019-04-14] MEDS: SODIUM CHLORIDE 0.9% 1000ML 1,000 ML IV SCH (07:29)
[2019-04-14] MEDS: POLYETHYLENE (MIRALAX) 17 GM PACK PO SCH (10:40)
[2019-04-14] MEDS ORDERED: LIDOCAINE HCL 2% 2 ML VIAL/AMP(20MG/ML) INFIL ONE (10:52)
[2019-04-14] MEDS ORDERED: PROPOFOL IV EMULSION 10 MG/ML 20 ML VIAL IV ONE (10:52)
--- NOTE | 2019-04-14 10:53 | Gastrointestinal Consultation ---
Date of Consultation April 14, 2019 Assessment & Plan (1) Diffuse abdominal pain: (2) GI bleed: (3) Constipation: Pt is a 58 y/o female admitted for rectal bleeding suspected related to constipation - hx of int hemorrhoids seen in previous Colonoscopies in 2009, 2014 thus perhaps a fissure vs int hemorrhoidal bleeding. H/H stable, no signs of BUN rise. Lipase mildly up in 600s, LFTs w mild Tbili elevation 1.1 but liver, pancreas appears normal on CT scan ? mild pancreatitis. She overnight reports nausea and hematemesis last night. - Keep NPO - IVF resusciation - Continue PPI gtt - Zofran IV prn nausea - Will give her one dose of Erythromycin IV - Plan for EGD eval for hematemesis tomorrow by Dr. Pastor - Regarding constipation, would recommend her to continue Linzess 290mcg but on daily basis Supervising Physician Co-Signing Physician Notes I have seen and examined the patient and discussed the management with VERO Mccain. 58 yo fm admitted thru the ER last night for which GI is now consulted initially for ? lgi bleed. She has a history of chronic constipation on multiple medications - doesn't always take her linzess regularly, prior rectocele repair in 2017 at [facility]. Suspect her initial issues with LGI bleed were from constipation irritaing that rectocele site. She had attempts at an ng tube placement overnite for nausea I assume. When seen by Ela this morning- the patient reportedly had hematemesis in the basin and reports of prior hematemesis prior to admission- details as per Ela's note. I was planning for an egd, however, given reports of vomiting from the floor nursing staff to the endo nursing staff, it was decided to delay the procedure until tomorrow and opt for attempt at medical stabilization today with an IV PPI, erythromycin, and IV zofran today. When seen by me shortly later, she did not endorse any hematemesis prior to admission or at the present time - her bin was clear without evidence of blood in the basin in the room. She stated to me she just wanted to eat. PE - Gen- well nourished fm in nad, HEENT - perrla, CV- rrr no mrg, Pulm- Ctab, Abd - soft nt nd +bs, Ext - no lower leg swelling, Skin- no rashes Labs reviewed- hgb essentially normal, no bun rise, no cr rise She did not show me any pictures on her phone of hematemesis. Plan; IV PPI, IV erythromycin, IV Zofran. EGD tomorrow as long as electrolytes are normal. She may have been nauseous with vomiting from underlying constipation- would attempt aggressive bowl regimen with Miralax +/- Dulcolax while in house. Her reports of hematemesis this am that were witnessed by Ela may have been from NG trauma post attempted insertion overnite. It is unclear to me per her history to me if she was having hematemesis prior to admission - her hgb and bun are essentially normal. I do think with 24 hours of IV PPI, anti-nausea medication, and IV erythromcyin, this will help improve a better look tomorrow at her upper GI tract with an EGD tomorrow. She was requesting food as she states she is hungry, given no plan for a procedure today - okay for clear liquids today, npo after midnitie. Replete electrolytes if needed to facilitate egd getting done tomorrow. History of Present Illness Reason for Consultation: Rectal bleeding, constipation Requesting Physician: Dr. Garry Sanford Attending Physician: Dr. Radha Pastor History of Present Illness Pt is a 58 y/o female who presented yesterday w c/o abd pain, rectal bleeding. She has hx of constipation, taking Linzess on PRN. Reports not sure when she had good BM last. Yesterday she started having lower abd pain, when tried to defecate she is passing bright red blood per rectum. She denies any fever, chills, sick contact, recent antibx use. Upon eval, noted leukocytosis WBC 19K -> 8K. H/H 145/42 -> 12/38. BUN was normal. Cdiff and stool cx negative. CT abd/pelvis showed diffuse colonic wall thickening indicating colitis. Overnight, she has nausea, vomiting, reports bloody emesis which she showed me in her phone pictures. Primary team tried placing NGT but was unsuccessful. I did see blood in her emesis bin which pt reports was present before NGT placement was attempted. Allergies Allergy/AdvReac Type Severity Reaction Status Date / Time Penicillins Allergy Intermediate RASH Verified 04/13/19 15:42 hydrocodone Allergy Mild rash Verified 04/13/19 15:42 Home Medications Home Medications Medication Instructions Recorded Confirmed Type aspirin 81 mg PO DAILY 06/03/18 04/13/19 History atorvastatin 40 mg PO PM 06/03/18 04/13/19 History docusate sodium 100 mg PO HS PRN 06/03/18 04/13/19 History gabapentin 300 mg PO TID PRN 06/03/18 04/13/19 History linaclotide [Linzess] 290 mcg PO DAILY PRN 06/03/18 04/13/19 History omeprazole 20 mg PO DAILY PRN 06/03/18 04/13/19 History polyethylene glycol 3350 [Miralax] 17 g PO DAILY PRN 06/03/18 04/13/19 History conjugated estrogens 0.625 mg VAGINAL 2XWK 04/12/19 04/13/19 History ondansetron HCl [Zofran] 4 mg PO DAILY PRN #6 tab 04/12/19 04/13/19 Rx Patient History Medical History Acute hyperventilation (Acute) Acute hypokalemia (Acute) Constipation (Chronic) Gastroenteritis (Acute) GI bleed (Acute) Left elbow contusion (Resolved) Left shoulder pain (Resolved) No chronic diseases present Surgical History No significant past surgical history Family History Other No significant family history Social History Preferred Language: [place] Communication Ability: Effective Beliefs That Will Affect Care: None marital status: Single Current Living Situation: Family Current Living Situation Comment: son and son's s/o current occupational status: unemployed Feels Safe at Home: Yes Smoking Status: Never smoker Hx Alcohol Use: No Hx Substance Use: No Review of Systems Review of Systems: All systems reviewed & are unremarkable except as noted in HPI & below Physical Exam Constitutional: + ill appearing, well groomed and cooperative Eyes: PERRL, conjunctivae normal, anicteric sclerae ENMT: external ear and nose normal, oropharynx normal Respiratory: normal respiratory effort, lungs clear to auscultation Cardiovascular: RRR, no murmur, no edema Gastrointestinal (Abdomen): Inspection/Auscultation: + hypoactive bowel sounds Percussion/Palpation: + abdomen tender (epigastric ) and abdomen soft Skin: no rashes, warm and dry no jaundice Psychiatric: A+Ox3, euthymic affect Lymphatic: no lymphedema Results & Data Vital Signs (Past 12 Hours) Vital Signs Temp Pulse Resp BP Pulse Ox 04/14/19 07:07 36.8 C 80 18 169/70 H 97 04/13/19 22:57 37.2 C 95 H 18 167/63 H 97 (1) GI bleed GI bleed type/associated pathology: unspecified gastrointestinal hemorrhage type Qualified Code(s): K92.2 - Gastrointestinal hemorrhage, unspecified (2) Constipation Constipation type: unspecified constipation type Qualified Code(s): K59.00 - Constipation, unspecified
--- NOTE | 2019-04-14 11:30 | XRay Report ---
KUB HISTORY: Generalized abd pain; severe constipation; quantitate stool COMPARISON: KUB 06/03/2018. Abdomen and pelvis CT 04/12/2019. FINDINGS: The bowel gas pattern is unremarkable. There are no dilated loops of small bowel to suggest an obstruction. No renal calculi. No ureteral calculi. Calcifications in the deep pelvis likely rep resent phleboliths. Old, healed left-sided rib fractures. Small amount of stool seen within the colon . No pneumoperitoneum or pneumatosis. IMPRESSION: 1. No evidence for bowel obstruction. 2. Small amount of stool seen scattered throughout the colon. Electronically signed by: Can Teresa M.D. 04/14/2019 11:29 AM
[2019-04-14] MEDS ORDERED: ERYTHROMYCIN IV ONE (12:00)
[2019-04-14] MEDS ORDERED: SODIUM CHLORIDE 0.9% IV ONE (12:00)
[2019-04-14] MEDS: LACTATED RINGER'S 1,000 ML IV SCH ×2 (12:40→22:31)
[2019-04-14] MEDS: ONDANSETRON INJ 2 MG/ML 2 ML VIAL IV PRN (17:21)
[2019-04-14 18:41] LABS: BUN Creatinine Ratio 9.8 (10-20); Calcium 9.4 mg/dl (8.5-10.1); Creatinine Clr Calc Pharmacy 76.7 ml/min; Est GFR (African American) 111.2; Potassium 3.4 mmol/L (3.5-5.1)
--- NOTE | 2019-04-14 20:19 | Hospitalist Progress Note ---
Date of Service April 14, 2019 Assessment & Plan (1) Hematemesis: new-onset. 1 episode by report. seen by [facility] - plan for EGD tomorrow. allow clears until MN tonight then NPO for EGD in am. PPI drip. anti-emetics. CBC in am. geovanny-dora tear? esophagitis? other? (2) Rectal bleeding: in setting of severe straining due to chronic constipation. hemorrhoidal vs diverticular vs infectious vs other. apparently had IDANIA in the ER but I cannot find documentation of the IDANIA results. I also cannot find documentation in the EMR of her prior colonoscopy either. monitor. serial CBC. treat constipation. defer colonoscopy, if felt necessary, to GI. (3) Constipation: chronic. by history sounds like slow-transit. KUB x-ray obtained this am to examine fecal load - mild. resume outpatient regimen. (4) Diffuse abdominal pain: improved. constipation vs infectious vs other. c. diff negative. appreciate GI consultation. repeat lipase in am as initial lipase in ER was mildly elevated. (5) Colitis: could she have viral gastroenteritis? was this artifactual on CT? other? serial exams. (6) History of repair of rectocele: noted (7) Acute hypokalemia: improved to 3.9 repeat BMP am Subjective pt w/ apparent episode of hematemesis earlier today. no further BRBPR. main complaint is that of persistent nausea. is tolerating jello/clears. minimal abdominal pain. asks multiple questions about her old rectocele and if "it came back." she remembers having a colonoscopy several years ago but cannot recall the results or where the c-scope was done. Review of Systems Constitutional: no fever, no chills and no anorexia ("I'm hungry") Respiratory: + cough, + chest congestion and + wheezing; no dyspnea Cardiovascular: no chest pain Genitourinary: no dysuria Physical Exam Constitutional: well developed and well nourished; no acute distress and no altered mental status ENMT: external ear and nose normal, oropharynx normal Respiratory: no respiratory distress Auscultation: + wheezes; no diminished lung sounds and no crackles Cardiovascular: Rate/Rhythm: regular rate and regular rhythm Heart Sounds: normal S1 and normal S2; no murmur Vessels: posterior tibial pulses present and dorsalis pedis pulses present; no JVD Extremities: no edema Gastrointestinal (Abdomen): normal bowel sounds, soft, nontender, no hepatosplenomegaly Skin: no pallor Psychiatric: A+Ox3, euthymic affect Results & Data Vital Signs (Past 12 Hours) Vital Signs Temp Pulse Resp BP Pulse Ox 04/14/19 15:15 36.9 C 79 18 158/76 H 99 Laboratory Results Laboratory Results - last 24 hr 04/13/19 04/14/19 04/14/19 18:16 00:16 01:30 WBC RBC Hgb 13.3 Hct 38.3 MCV MCH MCHC RDW Std Deviation RDW Coeff of Dwaine Plt Count MPV Immature Gran % (Auto) Neut % (Auto) Lymph % (Auto) [place] % (Auto) Eos % (Auto) Baso % (Auto) Immature Gran # (Auto) Neut # (Auto) Lymph # (Auto) [place] # (Auto) Eos # (Auto) Baso # (Auto) Sodium Potassium Chloride Carbon Dioxide Anion Gap BUN Creatinine Est Cr Clr Drug Dosing Est GFR ( Amer) Est GFR (Non-Af Amer) BUN/Creatinine Ratio Glucose Calcium Total Bilirubin AST ALT Alkaline Phosphatase Total Protein Albumin Globulin Albumin/Globulin Ratio Urine Color Yellow Urine Appearance Clear Urine pH 7.5 Ur Specific Le[place] 1.020 Urine Protein Negative Urine Glucose (UA) Negative Urine Ketones 1+ H Urine Blood 3+ H Urine Nitrite Negative Urine Bilirubin Negative Urine Urobilinogen Negative Ur Leukocyte Esterase Negative Urine WBC (Auto) 1-5 Urine RBC (Auto) 10-30 H U Hyaline Cast (Auto) 1-5 U Epithel Cells (Auto) >30 H Urine Bacteria (Auto) 1+ H Hepatitis C Ab Screen Blood Type O Positive Antibody Screen NEGATIVE 04/14/19 04/14/19 04/14/19 05:19 05:19 05:19 WBC 8.91 RBC 4.45 Hgb 12.9 Hct 38.0 MCV 85.4 MCH 29.0 MCHC 33.9 RDW Std Deviation 41.2 RDW Coeff of Dwaine 13.2 Plt Count 189 MPV 11.1 H Immature Gran % (Auto) 0.2 Neut % (Auto) 82.6 Lymph % (Auto) 13.1 [place] % (Auto) 4.0 Eos % (Auto) 0.0 Baso % (Auto) 0.1 Immature Gran # (Auto) 0.02 Neut # (Auto) 7.35 H Lymph # (Auto) 1.17 L [place] # (Auto) 0.36 Eos # (Auto) 0.00 Baso # (Auto) 0.01 Sodium 135 L Potassium 3.9 D Chloride 107 Carbon Dioxide 25 Anion Gap 3.0 BUN 14 Creatinine 0.63 Est Cr Clr Drug Dosing 84.1 Est GFR ( Amer) 114.6 Est GFR (Non-Af Amer) 98.9 BUN/Creatinine Ratio 21.4 H Glucose 135 H Calcium 8.5 Total Bilirubin 1.1 H AST 15 ALT 27 Alkaline Phosphatase 89 Total Protein 7.3 Albumin 3.6 Globulin 3.7 Albumin/Globulin Ratio 1.0 Urine Color Urine Appearance Urine pH Ur Specific Leiter Urine Protein Urine Glucose (UA) Urine Ketones Urine Blood Urine Nitrite Urine Bilirubin Urine Urobilinogen Ur Leukocyte Esterase Urine WBC (Auto) Urine RBC (Auto) U Hyaline Cast (Auto) U Epithel Cells (Auto) Urine Bacteria (Auto) Hepatitis C Ab Screen Neg Blood Type Antibody Screen 04/14/19 18:00 WBC RBC Hgb Hct MCV MCH MCHC RDW Std Deviation RDW Coeff of Dwaine Plt Count MPV Immature Gran % (Auto) Neut % (Auto) Lymph % (Auto) [place] % (Auto) Eos % (Auto) Baso % (Auto) Immature Gran # (Auto) Neut # (Auto) Lymph # (Auto) [place] # (Auto) Eos # (Auto) Baso # (Auto) Sodium 132 L Potassium 3.4 L Chloride 102 Carbon Dioxide 23 Anion Gap 7.0 BUN 7 D Creatinine 0.69 Est Cr Clr Drug Dosing 76.7 Est GFR ( Amer) 111.2 Est GFR (Non-Af Amer) 96.0 BUN/Creatinine Ratio 9.8 L Glucose 107 H Calcium 9.4 Total Bilirubin AST ALT Alkaline Phosphatase Total Protein Albumin Globulin Albumin/Globulin Ratio Urine Color Urine Appearance Urine pH Ur Specific Leiter Urine Protein Urine Glucose (UA) Urine Ketones Urine Blood Urine Nitrite Urine Bilirubin Urine Urobilinogen Ur Leukocyte Esterase Urine WBC (Auto) Urine RBC (Auto) U Hyaline Cast (Auto) U Epithel Cells (Auto) Urine Bacteria (Auto) Hepatitis C Ab Screen Blood Type Antibody Screen PG Care Time/CCT Total # of Minutes Spent Total Time Spent with Patient: Total time spent is greater than 50% in coordination of care (as documented) at patient's floor/unit and/or counseling patient: (1) Constipation Constipation type: unspecified constipation type Qualified Code(s): K59.00 - Constipation, unspecified (2) Hematemesis Nausea presence: with nausea Qualified Code(s): K92.0 - Hematemesis
[2019-04-14] MEDS: ATORVASTATIN 40 MG TAB PO SCH (20:51)
[2019-04-15] MEDS: PANTOprazole 40 MG in DEXTROSE 5% 100 ML IV SCH ×3 (01:16→14:48)
--- NOTE | 2019-04-15 08:45 | History & Physical Bridge Note ---
Date of Service April 15, 2019 History & Physical Bridge Note I have examined the patient. She has improved nausea overnite, no further hematemesis. PE - alert and oriented, CV - rrr no mrg, Pulm- CTAB, Abd - soft nt nd +bs Labs reviewed EGD today for evaluation of nausea/recent hematemesis.
[2019-04-15 08:56] LABS: Basophils # (auto) 0.02 K/uL (0-0.2); Basophils % (auto) 0.3 %; Eosinophils # (auto) 0.04 K/uL (0-0.5); Eosinophils % (auto) 0.6 %; Hematocrit (blood only) 37.1 % (37-47); Hemoglobin 12.4 g/dL (12.0-16.0); Lymphocytes # (auto) 2.27 K/uL (1.2-3.4); Lymphocytes % (auto) 34.8 %; Mean Corpuscular Hemoglobin 28.6 pg (25-34); Mean Corpuscular Hgb Conc 33.4 g/dL (32-36); Mean Corpuscular Volume 85.5 fL (80-100); Mean Platelet Volume 11.1 fL (7.4-10.4); Monocytes % (auto) 7.7 %; Neutrophils % (auto) 56.6 %; Platelet Count 174 K/uL (130-400); RDW Coefficient of Variation 13.2 % (11.5-14.5); RDW Standard Deviation 41.3 fL (36.4-46.3); Red Blood Count 4.34 M/uL (4.2-5.4); White Blood Count 6.53 K/uL (4.8-10.8)
--- NOTE | 2019-04-15 09:00 | Anesthesiology Consultation ---
Date of Service April 15, 2019 Assessment & Plan (1) Encounter for pre-operative examination: Chart Review Chart Review: Acceptable Risk for Surgery and Patient NOT seen in Pre Admission Testing Consults Requested none History Surgery Operation Date: 04/15/19 16:00 Proposed Procedures p Esophagogastroduodenoscopy Dr. Darby Pastor M.D. Height/Weight Height: 5 ft 4 in Weight: 64.5 kg Allergies Allergy/AdvReac Type Severity Reaction Status Date / Time Penicillins Allergy Intermediate RASH Verified 04/13/19 15:42 hydrocodone Allergy Mild rash Verified 04/13/19 15:42 Medications Home Medications Medication Instructions Recorded Confirmed Last Taken aspirin 81 mg PO DAILY 06/03/18 04/13/19 04/12/19 atorvastatin 40 mg PO PM 06/03/18 04/13/19 02/27/19 docusate sodium 100 mg PO HS PRN 06/03/18 04/13/19 Unknown gabapentin 300 mg PO TID PRN 06/03/18 04/13/19 Unknown linaclotide [Linzess] 290 mcg PO DAILY PRN 06/03/18 04/13/19 04/12/19 2 DOSES TODAY omeprazole 20 mg PO DAILY PRN 06/03/18 04/13/19 Unknown polyethylene glycol 3350 [Miralax] 17 g PO DAILY PRN 06/03/18 04/13/19 Unknown conjugated estrogens 0.625 mg VAGINAL 2XWK 04/12/19 04/13/19 Unknown ondansetron HCl [Zofran] 4 mg PO DAILY PRN #6 tab 04/12/19 04/13/19 Unknown Active Medications Generic Name Dose Route Start Last Admin Trade Name Freq PRN Reason Stop Dose Admin Atorvastatin Calcium 40 mg 04/13/19 21:00 04/14/19 20:51 Lipitor PO 05/13/19 20:59 40 mg PM SOPHY Administration Calcium Carbonate 1,500 mg 04/13/19 22:50 04/14/19 03:19 Tums PO 05/13/19 22:49 1,500 mg Q4H PRN Administration Indigestion Promethazine HCl 25 mg/ Sodium 51 mls @ 204 mls/hr 04/14/19 00:03 04/14/19 19:05 Chloride IV 05/14/19 00:02 Infused Q6H PRN Infusion Nausea And Vomiting Pantoprazole Sodium 40 mg/ 100 mls @ 20 mls/hr 04/14/19 00:30 04/15/19 06:27 Dextrose IV 05/14/19 00:29 20 mls/hr Q5H SOPHY Administration Lactated Ringer's 1,000 mls @ 75 mls/hr 04/14/19 11:30 04/14/19 22:31 Lr IV 05/14/19 11:29 75 mls/hr .[id number] SOPHY Administration Ondansetron HCl 4 mg 04/13/19 21:29 04/14/19 17:21 Zofran IV 05/13/19 21:28 4 mg Q6H PRN Administration Nausea Polyethylene Glycol 17 gm 04/14/19 09:00 04/14/19 10:40 Miralax Powder Packet PO 05/14/19 08:59 Not Given DAILY SOPHY NPO Date Last Intake of Fluids: 04/14/19 Date Last Intake of Solids: 04/14/19 Past Medical History Medical History Acute hyperventilation (Acute) Acute hypokalemia (Acute) Constipation (Chronic) Gastroenteritis (Acute) GI bleed (Acute) Left elbow contusion (Resolved) Left shoulder pain (Resolved) No chronic diseases present Past Family History Family History Other No significant family history Past Surgical History Surgical History No significant past surgical history Social History Smoking Status: Never smoker Hx Alcohol Use: No Hx Substance Use: No Physical Exam Vital Signs Last Vital Signs Temp 36.9 C 04/15/19 07:11 Pulse 89 04/15/19 07:11 Resp 18 04/15/19 07:11 BP 138/74 04/15/19 07:11 Pulse Ox 98 04/15/19 07:11 Testing Laboratory Results 04/15/19 08:10 Urine Color Yellow 04/14/19 01:30 Urine Appearance Clear (Clear) 04/14/19 01:30 Urine pH 7.5 (4.5-7.5) 04/14/19 01:30 Ur Specific [place] 1.020 (1.000-1.030) 04/14/19 01:30 Urine Protein Negative (Negative) 04/14/19 01:30 Urine Glucose (UA) Negative (Negative) 04/14/19 01:30 Urine Ketones 1+ (Negative) H 04/14/19 01:30 Urine Nitrite Negative (Negative) 04/14/19 01:30 Ur Leukocyte Esterase Negative (Negative) 04/14/19 01:30 Urine WBC (Auto) 1-5 /hpf (0-5) 04/14/19 01:30 Urine RBC (Auto) 10-30 /hpf (0-4) H 04/14/19 01:30 U Hyaline Cast (Auto) 1-5 /lpf (0-5) 04/14/19 01:30 U Epithel Cells (Auto) >30 /lpf (0-5) H 04/14/19 01:30 Urine Bacteria (Auto) 1+ (Negative) H 04/14/19 01:30 Blood Type O Positive 04/13/19 18:16 Antibody Screen NEGATIVE 04/13/19 18:16
[2019-04-15] MEDS ORDERED: ATROPINE SULFATE 0.1 MG/ML 10ML SYR IV PRN (09:03)
[2019-04-15] MEDS ORDERED: ePHEDrine sulfate 50 MG/ML AMP IV PRN (09:03)
[2019-04-15] MEDS ORDERED: PROPOFOL IV EMULSION 10 MG/ML 20 ML VIAL IV ONE (09:25)
[2019-04-15] MEDS ORDERED: LIDOCAINE HCL 2% 2 ML VIAL/AMP(20MG/ML) INFIL ONE ×2 (09:25)
--- NOTE | 2019-04-15 09:26 | GI REPORT ---
Patient Name: Kylah Treviño Procedure Date: 04/15/2019 9:10 AM Date of : 1960 Admit Type: Inpatient Age: 58 Gender: Female Attending MD: Radha Pastor M.d. Procedure: Upper GI endoscopy Providers: Radha Pastor M.d. Referring MD: Garry Barreto Indications: Hematemesis and nausea Medicines: See anesthesia note Complications: No immediate complications. Estimated Blood Loss: Estimated blood loss: none. Procedure: Pre-Anesthesia Assessment: - Patient identification and proposed procedure were verified prior to the procedure by the physician, the nurse and the anesthesiologist. The procedure was verified in the pre-procedure area. - Prior to the procedure, a History and Physical was performed, and patient medications, allergies and sensitivities were reviewed. The patient's tolerance of previous anesthesia was reviewed. - The risks and benefits of the procedure and the sedation options and risks were discussed with the patient. All questions were answered and informed consent was obtained. - ASA Grade Assessment: II - A patient with mild systemic disease. After obtaining informed consent, the endoscope was passed under direct vision. Throughout the procedure, the patient's blood pressure, pulse, and oxygen saturations were monitored continuously. The Endoscope was introduced through the mouth, and advanced to the second part of duodenum. The upper GI endoscopy was accomplished without difficulty. The patient tolerated the procedure well. Findings: The examined esophagus was normal. Biopsies were taken with a cold forceps for histology - specimen was placed into Bottle C. No evidence of a tear was seen. The entire examined stomach was normal. Biopsies were taken with a cold forceps for Helicobacter pylori testing - specimen was placed into Bottle B. The duodenal bulb and second portion of the duodenum were normal. Biopsies for histology were taken with a cold forceps for evaluation of celiac disease. The pathology specimen was placed into Bottle A. Verification of specimens was done. Impression: - Normal esophagus. Biopsied. - Normal stomach. Biopsied. - Normal duodenal bulb and second portion of the duodenum. Biopsied. - No evidence of ulceration or active blood was seen or lesions that recent bled were seen. Recommendation: - Await pathology results. - Return to the floor. Moris Schumacher M.d. 04/15/2019 9:26:26 AM This report has been signed electronically. Note Initiated On: 04/15/2019 9:10 AM Number of Addenda: 0 I attest to the content of the Intraoperative Record and orders documented therein, exceptions below {[id number]}
--- NOTE | 2019-04-15 09:26 | Gastroenterology Progress Note ---
Date of Service April 15, 2019 Supervising Physician Co-Signing Physician Notes EGD completed today- biopsies done of the esophagus, stomach, duodenum. No evidence of active bleeding seen on today's egd or recent GI bleeding - bile present in the duodenum. Would suggest transition to PPI (40 mg) once daily, prn antinausea medication. Will inform her of her biopsy results through a letter when they return. Ok to [place] home from a GI perspective. GI will sign off. Results & Data Vital Signs (Past 12 Hours) Vital Signs Temp Pulse Resp BP Pulse Ox 04/15/19 08:53 36.7 C 76 18 134/63 99 04/15/19 07:11 36.9 C 89 18 138/74 98
[2019-04-15 09:28] LABS: BUN Creatinine Ratio 11.6 (10-20); Calcium 9.1 mg/dl (8.5-10.1); Creatinine Clr Calc Pharmacy 80.2 ml/min; Est GFR (African American) 112.9; Est GFR (Non-African American) 97.4; Magnesium 2.1 mg/dl (1.8-2.4); Potassium 3.2 mmol/L (3.5-5.1)
[2019-04-15] MEDS ORDERED: POTASSIUM CHLORIDE 20 MEQ TABCR PO STA (10:47)
[2019-04-15] MEDS: PROMETHAZINE HCL 25 MG in SODIUM CHLORIDE 0.9% 50 ML IV PRN (10:56)
[2019-04-15] MEDS: LACTATED RINGER'S 1,000 ML IV SCH (12:00)
--- NOTE | 2019-04-15 14:59 | Anesthesiology Progress Note ---
Date of Service April 15, 2019 Anesthesia Post Procedure Vital Signs Vital Signs: Temp Pulse Resp BP Pulse Ox 04/15/19 14:39 37.0 C 74 18 152/77 H 97 04/15/19 10:39 36.7 C 71 16 179/92 H 99 04/15/19 10:01 77 18 173/88 H 100 04/15/19 09:46 78 18 179/89 H 100 04/15/19 09:31 36.5 C 79 16 166/75 H 100 04/15/19 08:53 36.7 C 76 18 134/63 99 04/15/19 07:11 36.9 C 89 18 138/74 98 04/14/19 15:15 36.9 C 79 18 158/76 H 99 Pain Intensity Medial Back: Pain Intensity: 6 Transfer of Care Handoff Completed per policy Notes Mental Status: alert / awake / arousable Patient Amnestic to Procedure: Yes Nausea / Vomiting: adequately controlled Pain: adequately controlled Airway Patency, RR, SpO2: stable & adequate BP & HR: stable & adequate Hydration State: stable & adequate Anesthetic Complications: no major complications apparent and Pt Satisfied with anesthetic care
--- NOTE | 2019-04-15 15:16 | Ultrasound Report ---
US gallbladder HISTORY: Nausea. Pain. persistent nausea/emesis COMPARISON: None. FINDINGS: The gallbladder is normal. No shadowing gallstones. Gallbladder wall is 2 mm. Common bile duct is 4 m m. Fatty infiltration of liver. Pancreas and right kidney are unremarkable. No evidence for hydronephros is. IMPRESSION: 1. Fatty infiltration of liver. 2. Otherwise normal ultrasound. The above report was generated using voice recognition software. It may contain grammatical, syntax or spelling errors. Electronically signed by: Cholo Espinosa M.D. 04/15/2019 3:14 PM
[2019-04-15] MEDS: POLYETHYLENE (MIRALAX) 17 GM PACK PO SCH (16:04)
[2019-04-15] MEDS: METOCLOPRAMIDE HCL INJ 5 MG/ML 2 ML VIAL IV SCH ×2 (16:07→20:51)
[2019-04-15] MEDS: ATORVASTATIN 40 MG TAB PO SCH (20:50)
--- NOTE | 2019-04-15 21:25 | Hospitalist Progress Note ---
Date of Service April 15, 2019 Assessment & Plan (1) Hematemesis: 1 episode by report. seen by [facility] - EGD performed this am. completely normal. bx's taken from esophagus, stomach. stop PPI drip. place on IV zantac for symptom control of nausea/reflux type symptoms. cause of reported episode of blood in vomit? upper pharynx or nose? laryngeal? (2) Rectal bleeding: Multiple episodes reported by patient. Hemorrhoidal? Diverticular? Colitis? other? Suspect anal outlet from hemorrhoids. During my IDANIA - which was chaperoned by nurse Melinda - she had several hemorrhoids. The stool was grossly brown, however. I am uncertain what I was feeling on the anterior rectal wall. There was a firmness to the wall - ?mass vs rectocele vs other. H/H have remained stable. Defer to GI about need for colonoscopy while hospitalized. She reports having had colonoscopy within last 5 years- I cannot find record of this. (3) Constipation: acute/chronic. acute component resolved. by history sounds like slow-transit. KUB x-ray obtained to examine fecal load - mild. resumed outpatient regimen. no impaction on IDANIA today. (4) Diffuse abdominal pain: ongoing. crampy. CT abd/pelvis - ?colitis. c diff negative. had minimally elevated lipase - now normalized. LFTs wnl. RUQ u/s obtained today to r/o biliary cause of pain -- no stones, normal gall bladder. Did patient have viral GE causing her current symptoms?? did have leukocytosis a few days ago - now resolved. Appreciate GI input. Need for colonoscopy to r/o colonic causes of pain? (5) Colitis: could she have viral gastroenteritis? was this artifactual on CT? other? serial exams. (6) History of repair of rectocele: noted (7) Acute hypokalemia: low again replete repeat BMP am mag levels have been normal (8) Vomiting: etiology uncertain. RUQ u/s today negative for biliary cause. LFTs and lipase wnl. EGD today normal. CT abd/pelvis recently with ? colitis. viral gastroenteritis??? she has been refractory to zofran and phenergan. thus, place on SCHEDULED reglan 5mg IV q6h. allow diet - full liquids only for now. (9) DVT prophylaxis: low risk due to recent concern for bleeding defer on chemical means ambulate cont IV fluids patient not tolerating PO ongoing electrolyte problems change observation status to full admit status Subjective saw patient several times today. first visit was after she had returned from endoscopy. by report had a NORMAL brown, nonbloody BM in endoscopy. EGD was normal. during this 1st visit I found her holding a large emesis basis and spitting up clear fluid. she c/o nausea. she told me "I'm starving!" "I have nausea because I haven't eaten anything in 4 days!" she says "I can't eat jello" she tolerated some crackers just before my arrival she continues with abdominal cramps had stool overnight - was normal, but then she stated she had another stool after returning from endoscopy and "I think it had blood" Review of Systems Constitutional: + fatigue; no fever and no chills Respiratory: + cough; no dyspnea Cardiovascular: no chest pain Gastrointestinal: + abdominal pain, + bloating, + nausea, + vomiting and + blood in stools (question of); no constipation and no diarrhea/loose stools Physical Exam Constitutional: well developed, well nourished and + acute distress (vomiting ); no altered mental status ENMT: external ear and nose normal, oropharynx normal Respiratory: no respiratory distress Auscultation: + wheezes; no diminished lung sounds and no crackles Cardiovascular: Rate/Rhythm: regular rate and regular rhythm Heart Sounds: normal S1 and normal S2; no murmur Vessels: posterior tibial pulses present and dorsalis pedis pulses present; no JVD Extremities: no edema Gastrointestinal (Abdomen): normal bowel sounds, soft, nontender, no hepatosplenomegaly Inspection/Auscultation: + abdomen distended (mild) Rectal Exam: + hemorrhoids (multiple); normal sphincter tone, no stool abnormal, no fecal impaction, no rectal tenderness, no rectal fissure and no rectal laceration ?small mass anterior rectal wall vs rectocele vs other??? Skin: no pallor Psychiatric: A+Ox3, euthymic affect Results & Data Vital Signs (Past 12 Hours) Vital Signs Temp Pulse Resp BP Pulse Ox 04/15/19 14:39 37.0 C 74 18 152/77 H 97 04/15/19 10:39 36.7 C 71 16 179/92 H 99 04/15/19 10:01 77 18 173/88 H 100 04/15/19 09:46 78 18 179/89 H 100 04/15/19 09:31 36.5 C 79 16 166/75 H 100 Laboratory Results Laboratory Results - last 24 hr 04/15/19 04/15/19 08:10 08:10 WBC 6.53 RBC 4.34 Hgb 12.4 Hct 37.1 MCV 85.5 MCH 28.6 MCHC 33.4 RDW Std Deviation 41.3 RDW Coeff of Dwaine 13.2 Plt Count 174 MPV 11.1 H Immature Gran % (Auto) 0.0 Neut % (Auto) 56.6 Lymph % (Auto) 34.8 Caldwell % (Auto) 7.7 Eos % (Auto) 0.6 Baso % (Auto) 0.3 Immature Gran # (Auto) 0.00 Neut # (Auto) 3.70 Lymph # (Auto) 2.27 Caldwell # (Auto) 0.50 Eos # (Auto) 0.04 Baso # (Auto) 0.02 Sodium 139 D Potassium 3.2 L Chloride 107 Carbon Dioxide 25 Anion Gap 7.0 BUN 8 Creatinine 0.66 Est Cr Clr Drug Dosing 80.2 Est GFR ( Amer) 112.9 Est GFR (Non-Af Amer) 97.4 BUN/Creatinine Ratio 11.6 Glucose 89 Calcium 9.1 Magnesium 2.1 Lipase 104 PG Care Time/CCT Total # of Minutes Spent Total Time Spent with Patient: Total time spent is greater than 50% in coordination of care (as documented) at patient's floor/unit and/or counseling patient: (1) Hematemesis Nausea presence: with nausea Qualified Code(s): K92.0 - Hematemesis (2) Constipation Constipation type: unspecified constipation type Qualified Code(s): K59.00 - Constipation, unspecified (3) Vomiting Nausea presence: with nausea Vomiting Intractability: non-intractable Vomiting type: unspecified Qualified Code(s): R11.2 - Nausea with vomiting, unspecified
[2019-04-16] MEDS: LACTATED RINGER'S 1,000 ML IV SCH (01:02)
[2019-04-16] MEDS: METOCLOPRAMIDE HCL INJ 5 MG/ML 2 ML VIAL IV SCH ×2 (01:02→08:30)
[2019-04-16 06:41] LABS: Calcium 9.1 mg/dl (8.5-10.1); Est GFR (African American) 112.3; Est GFR (Non-African American) 96.9; Potassium 3.4 mmol/L (3.5-5.1)
[2019-04-16] MEDS ORDERED: POTASSIUM CHLORIDE 20 MEQ TABCR PO STA (07:45)
[2019-04-16] MEDS: POLYETHYLENE (MIRALAX) 17 GM PACK PO SCH (08:30)
--- NOTE | 2019-04-16 10:18 | Anesthesiology Progress Note ---
Date of Service April 16, 2019 Anesthesia Post Procedure Vital Signs Vital Signs: Temp Pulse Resp BP Pulse Ox 04/16/19 07:21 36.8 C 86 20 145/84 H 96 04/15/19 22:31 36.7 C 102 H 18 112/64 96 04/15/19 14:39 37.0 C 74 18 152/77 H 97 04/15/19 10:39 36.7 C 71 16 179/92 H 99 Pain Intensity Medial Back: Pain Intensity: 4 Notes Mental Status: alert / awake / arousable Patient Amnestic to Procedure: Yes Nausea / Vomiting: adequately controlled Pain: adequately controlled Airway Patency, RR, SpO2: stable & adequate BP & HR: stable & adequate Hydration State: stable & adequate Anesthetic Complications: no major complications apparent and Pt Satisfied with anesthetic care
--- NOTE | 2019-04-16 10:52 | Discharge Summary ---
Date of Service April 16, 2019 Admission HPI Per Admitting Provider Patient is a 58-year-old female past medical history HLD, constipation, who presents with acute on chronic constipation and new onset of bright red blood VA. Patient was seen yesterday evening in the ER, and had an extensive work-up including a CT scan as well as blood work. CT scan from last evening showed evidence of bowel wall thickening, diverticulosis, absence of diverticulitis, without abdominal obstruction. She was noted to have an elevated white blood cell count of 19,000, and was hypokalemic. C. difficile testing was negative last evening. Norovirus testing is still pending. She saw her PCP today for follow-up, and it was noted at that time that she had an elevated heart rate of 130. She also noted that she has vomited twice while trying to pass bowel movement today, and it was felt by her PCP that she should be evaluated further in the ER today. Of note, patient has a history of rectocele surgery which was performed 2 years ago at [facility] in [place]. Patient notes she takes four stool softeners daily, including 1 capful of MiraLAX, a spoonful of Benefiber as needed, Linzess and as needed, and Dulcolax as needed. She last took Linzess yesterday and notes that today she had mushy, bloody, maroon- colored stool. In general, she notes a maximum of 1 bowel movement every other day. She also notes that it is gone to the point now where she has to "reach in and pull out nuggets." She is complaining of 6 out of 10 pain in the lower left and lower right quadrants on my assessment today. Admission Exam Per Admitting Provider General: Well-appearing female, in no significant distress. HEENT: No scleral icterus, PERRLA, neck supple. Atraumatic. Cardiovascular: Regular rate and rhythm, no extra sounds. Pulmonary: Clear to auscultation bilaterally, normal work of breathing. Abdomen: Soft, tender in epigastrium, LLQ, RLQ, nondistended, positive bowel sounds. Musculoskeletal: Atraumatic, no peripheral edema. Neurologic: Patient awake alert and oriented x 3, full strength in all 4 extremities. Cranial nerves 2 through 12 grossly intact. Skin: Warm, dry, no rash Principal Diagnosis Viral Gastroenteritis Discharge Exam Constitutional: well developed, well nourished and no acute distress; no altered mental status ENMT: external ear and nose normal, oropharynx normal Respiratory: no respiratory distress Auscultation: no diminished lung sounds and no crackles Cardiovascular: Rate/Rhythm: regular rate and regular rhythm Heart Sounds: normal S1 and normal S2; no murmur Vessels: posterior tibial pulses present and dorsalis pedis pulses present; no JVD Extremities: no edema Gastrointestinal (Abdomen): normal bowel sounds, soft, nontender, no hepatosplenomegaly Skin: no pallor Psychiatric: A+Ox3, euthymic affect Discharge Data Allergies Allergy/AdvReac Type Severity Reaction Status Date / Time Penicillins Allergy Intermediate RASH Verified 04/13/19 15:42 hydrocodone Allergy Mild rash Verified 04/13/19 15:42 Consultations 04/13/19 19:28 ED Decision to Admit Stat 04/13/19 21:29 Consult Gastroenterology Routine Procedures Performed Operation Date: 04/15/19 16:00 Actual Procedures p EGD Biopsy Cytology - Radha Pastor M.D. Ordered Studies 04/12/19 CT Abd/pelvis 04/14/19 KUB 04/15/19 13:15 US gallbladder Urgent Hospital Course (1) Rectal bleeding: Patient admitted with rectal bleeding per patient over past several days. Concern for diverticular vs colitis vs hemorrhoidal in origin. Patient placed on protonix drip, zantac for symptoms control of nausea/reflux. Recurrent nausea only improved by SCHEDULED reglan. H/H remained stable. Colonoscopy deferred to outpatient setting given no recurrence. Per patient, she had colonoscopy within the last five year but unsure who did this and no records available. IDANIA performed which was positive for hemerrhoids, internal and possible firmness to anterior rectal wall. Ongoing abdominal pain throughout stay, but resolved prior to discharge. CT abd/pelvis with possible colitis which probably was viral in origin. Cdiff negative, minimally elevated lipase which normalized prior to discharge. LFTs wnl. RUQ U/S without evidence of stones or inflammation. Patient with chronic constipation and requires multiple stoool softeners/mo tility agents, but admitted that she had not been very faithful at taking these on the regular. KUB was done for constipation while inpatient which showed moderate fecal load which was relieved by reinitiation of outpatient regimen. During hospitalization, patient reported hematemesis x 1, unwitnessed, and was seen by [facility] who performed EGD which was done and found to be without abnormality. Biopsies taken, pending at time of discharge. Per patient, she did state she has dry nose chronically which is managed with saline nasal spray at home. ?Hematemesis origin from upper pharynx/nose. Recommended patient continue PPI as outpatient. (2) Hematemesis: resolved (3) Constipation: resolved (4) Diffuse abdominal pain: resolve (5) Colitis: (6) History of repair of rectocele: noted (7) Acute hypokalemia: Several low potassium levels. Repleted with mag level normal prior to d/c (8) Vomiting: resolved (9) DVT prophylaxis: low risk . ambulation encouraged while inpatient Total Time Total Time Spent Total Time Spent (In Minutes): 45 Discharge Plan Discharge Items Patient Disposition: Home - Self-Care Reason For Visit: BRBPR Discharge Diagnosis: Viral Gastroenteritis Goals: You have been hospitalized for an acute medical problem. During your stay at [facility], we have made an effort to correct the problem that brought you to the hospital while keeping you as comfortable as possible. Medications were used to bring your condition under control and your discharge instructions will include directions for any medications you should take after leaving the hospital. Please make sure you see your Primary Care Provider as part of your follow up plan. Activity: Resume your previous activity Non-emergency contact: Primary Care Provider Call non-emergency contact if: you have any medication questions, your symptoms worsen, your pain is worsening and you have a fever Follow-up/Referrals: Jennifer Ann MD [Primary Care Provider] - 04/21/19 11:30 am (Please, follow up at [facility] with Dr. Ann on April 21 at 11:30 am. *If you need to change this appointment, call the office at [phone].) Diet: Regular Addtl Attending Provider Instructions: You have been hospitalized for rectal bleeding and uncontrolled nausea and vomiting. It has been determined that it is likely due to a viral gastro enteritis. A scope (EGD) was done by Dr. Pastor, which did not show any evidence of bleeding ulcers or abnormal findings. Pathology results should be back in the next two weeks. -As discussed, we will have our nurse navigator set you up with a follow up appointment with Dr. Pastor's office for a possible outpatient colonoscopy. If you do not receive a call by Thursday, please give their office a call at [phone]. For the next several weeks, please continue your daily bowel regimen to ensure that your bowels are moving and to prevent constipation or irritation of internal hemorrhoids. For upper airway congestion, it is recommended that you use your home humidifier and saline nasal spray. You may want to consider over the counter agents such as Zyrtec for the next week or two. Please follow up with your primary care provider as scheduled above next April 21. Please return to the emergency room if you develop worsening abdominal pain, fever, chills, or bloody/darkened vomit or for any other symptoms that are concerning for you. Pending Studies at Discharge: Yes Studies:: Pathology from EGD Stand-Alone Forms: My [facility] Medications and DC Order Prescriptions: Continued atorvastatin 40 mg Tablet 40 mg PO PM RF: 0 docusate sodium 100 mg Tablet 100 mg PO HS PRN (Reason: Constipation) RF: 0 Linzess 290 mcg Capsule 290 mcg PO DAILY PRN (Reason: constipation) RF: 0 omeprazole 20 mg Tablet,Delayed Release (Dr/Ec) 20 mg PO DAILY PRN (Reason: INDIGESTION/HEARTBURN) RF: 0 polyethylene glycol 3350 [Miralax] 17 gram/dose Powder 17 g PO DAILY PRN (Reason: Constipation) RF: 0 aspirin 81 mg Tablet,Delayed Release (Dr/Ec) 81 mg PO DAILY RF: 0 gabapentin 300 mg Capsule 300 mg PO TID PRN (Reason: NEEDED) RF: 0 conjugated estrogens 0.625 mg/gram Cream 0.625 mg VAGINAL 2XWK RF: 0 ondansetron HCl [Zofran] 4 mg tablet 4 mg PO DAILY PRN (Reason: nausea and vomiting) Qty: 6 RF: 0 Discharge Orders: Discharge Order (Routine); Ordered 04/16/19 Ordered By: Ester Dawson Admission Data Admit Date/Time: 04/15/19 13:12 Attending Provider: Finesse Landa Admit Provider: Ester Ruiz Primary Care Provider: Jennifer Ann Other Providers: Wenceslao Morales ; Radha Pastor Other Interventions: Discharge Summary Assessment (RN) Last Done: 04/16/19 11:20 DC Date/Time DO NOT enter until pt leaves facility: 04/16/19 11:52 Supervising Physician Co-Signing Physician Notes Attending note: patient seen and examined with Ester Dawson PA-C. I agree with her discharge summary. I personally reviewed the labs and imaging findings. patient feeling well, no further rectal bleeding, Hb stable, she wants to go home - GI bleeding: EGD with normal findings, no further evidence of bleeding, Hb stable eating well, no abdominal pain, safe to d/c home and follow up with PCP
== END 2019-04-16 11:52 | disposition home or self-care (01) | DRG 392 ==
LOC: 4W 16:48 → ED 16:48 → SUATTDRO 20:40 → 4W 21:21 → SUATTDRO 04-15 13:12